=== PATIENT | male | born 1940 | race Caucasian/White ===

== ENCOUNTER 2019-04-23 13:29 | Observation (INO) ==
--- NOTE | 2019-04-23 13:57 | ERNOTE ---
Time Seen by Provider: 04/23/19 13:29 Stated Complaint: SHAKEY,CHILLS,NO FEVER Presenting Symptoms:: cough Source: patient, family Exam Limitations: no limitations Immunizations: IMMUNIZATION HX Immunizations Up to Date Yes History of Influenza Vaccine Yes Hx Pneumococcal Vaccination Yes Allergies/Adverse Reactions: Allergies shellfish derived Allergy (Severe, Verified 04/23/19 13:40) Anaphylaxis allopurinol Allergy (Intermediate, Verified 04/23/19 13:40) Vomiting exenatide [From Bydureon] Allergy (Intermediate, Verified 04/23/19 13:40) pancreatitis Home Medications: HOME MEDICATIONS Aspirin [Aspirin Enteric Coated] 81 mg PO DAILY 04/08/15 [Last Taken Unknown] Multivitamins [Multivitamin Marilou] 1 cap PO DAILY 04/08/15 [Last Taken Unknown] betamethasone valerate 0.1 % topical ointment 1 applic TP DAILY PRN 05/10/18 [Last Taken Unknown] glucagon HCl 1 mg solution for injection 1 mg SUB-Q Q20M PRN 05/10/18 [Last Taken Unknown] insulin glargine (U-100) 100 unit/mL (3 mL) subcutaneous pen 60 unit SUB-Q DAILY 05/10/18 [Last Taken Unknown] spironolactone 25 mg tablet See Rx Instructions .ROUTE .COMPLEX #90 tablet 12/02/18 [Last Taken Unknown] flash glucose scanning reader See Dose Instructions .ROUTE .MEDSUPPLY #1 ea 12/12/18 [Last Taken Unknown] flash glucose sensor kit See Dose Instructions .ROUTE .MEDSUPPLY #1 ea 12/12/18 [Last Taken Unknown] lisinopril 40 mg tablet See Rx Instructions .ROUTE .COMPLEX #90 tablet 02/10/19 [Last Taken Unknown] lovastatin 20 mg tablet See Rx Instructions .ROUTE .COMPLEX #90 tablet 02/10/19 [Last Taken Unknown] insulin lispro (U-100) 100 unit/mL subcutaneous pen 22 unit SUB-Q TID ml 02/19/19 [Last Taken Unknown] levothyroxine 175 mcg tablet See Rx Instructions .ROUTE .COMPLEX #90 tablet 02/19/19 [Last Taken Unknown] torsemide 20 mg tablet See Rx Instructions .ROUTE .COMPLEX #90 tablet 03/22/19 [Last Taken Unknown] azithromycin 250 mg tablet See Rx Instructions PO .COMPLEX #6 tab 04/22/19 [Last Taken Unknown] metronidazole 0.75 % topical cream 1 applic TP BID PRN 04/22/19 [Last Taken Unk nown] - History of Present Ilness Narrative: Patient started to not feel well two days ago,malaise, fatigue, cough and sore throat. He was seen by Dr Clancy for his regular check up yesterday, strep test was negative, he was started on zithromax, started first dose last night. He is coming to the ER as he feels worse, vomited once prior to coming here, no abdominal pain, no diarrhea, no urinary complaints, no history of lung disease Date (Duration): 04/21/19 Timing: getting worse Frequency/Possible Cause: Reports: occasional episodes. Denies: illness exposure, foreign travel Associated Symptoms: Reports: cough, sore throat, fever/chills. Denies: chest pain/soreness, shortness of breath, facial pain, dizziness Prior Treatment: Reports: recently seen, currently on antibiotics Review of Systems - Review of Systems Constitutional: Present: chills, fatigue, malaise ENT: Present: sore throat. Absent: nose congestion, nasal drainage Respiratory: Present: cough. Absent: shortness of breath Cardiology: Absent: chest pain Gastrointestinal/Abdominal: Present: vomiting. Absent: diarrhea, abdominal pain Genitourinary: Present: no symptoms reported, See HPI. Absent: frequency Musculoskeletal: Absent: back pain Skin: Absent: rash Neurological: Present: weakness. Absent: headache Medical History (Updated 04/22/19 @ 14:57 by Slava Clancy MD) Acoustic neuroma Onset Date: Unknown right Actinic keratosis Onset Date: Unknown Bursitis of left elbow Onset Date: Unknown Chronic kidney disease Onset Date: Unknown stage 1, mild Diabetes mellitus, type II Onset Date: Unknown Erectile dysfunction Onset Date: Unknown Hyperlipidemia Onset Date: Unknown Hypertension Onset Date: Unknown Hypothyroidism Onset Date: Unknown Onychomycosis Onset Date: 11/28/12 Psoriasis Onset Date: Unknown knees and elbows Rib fracture Onset Date: ~1999 thrown off horse Schwannoma Onset Date: Unknown rt ear, auditory nerve Spontaneous pneumothorax Onset Date: ~1999 thrown off horse, fractured rib Surgical History: Surgical History (Updated 06/20/18 @ 13:12 by Tiffanie Hutchins RN) H/O Achilles tendon repair Onset Date: ~1983 H/O vasectomy Onset Date: ~1964 History of bronchoscopy Onset Date: ~1968 History of cholecystectomy Onset Date: ~1962 History of hip replacement Onset Date: ~10/2014 left hip Hx of LASIK Onset Date: ~2009 Hx of appendectomy Onset Date: ~1962 Hx of sigmoidoscopy Onset Date: Unknown Toribio-04/28/08-normal colonic mucosa w/lymphoid aggregate, Bagan-01/22/09-normal Hx of tonsillectomy Onset Date: ~1945 as a child Hx of colonoscopy Onset Date: 06/10/181988, 08/2007 Bagan-large sessile villous adenoma in rectum. 10/06/08 colonic mucosa w/adenomatous changes x2, hyperplastic x1. 04/12/15 tubular adenoma x2. Recheck 3 yrs. 06/10/18 Bagan-serrated adenoma. Recheck 3 yrs. Family History: Family History (Last Reviewed 04/23/19 @ 13:41 by Juani Lemus RN) Mother , age 90-old age No problems noted. Father , age 80 Heart failure Sister Diabetes Pacemaker Son Cancer of spine Son Diabetes Alive and well Grandfather , Maternal-age 63-suicide Suicide Grandfather , Paternal-age 65 Heart disease Grandmother , Maternal-age 80 CVA (cerebral vascular accident) Grandmother , age 62 Diabetes Son Alive and well Social History: Preferred Language Dominican Do you have any hoahaoism or No cultural preference? Smoking Status Never smoker Abuse History No History of abuse Psych History No pertinent hx Alcohol Use none Drug Use none (Last Updated 02/20/19 @ 16:02 by Gaby Lopez DPM) No Social History Section defined Physical Exam - Physical Exam General Appearance: Present: wd/wn, alert, no apparent distress Head Exam: Present: normal inspection Eye Exam: Normal inspection: bilateral, PERRL: bilateral Ears, Nose, Throat: Present: normal ENT inspection, normal pharynx Neck: Present: normal inspection Respiratory: Present: no respiratory distress, normal breath sounds, no accessory muscle use, lungs clear Cardiovascular/Chest: Present: regular rate, rhythm, no murmur Gastrointestinal/Abdominal: Present: normal bowel sounds, nontender, nondistended, soft Extremity Exam: Present: no edema Neurological Exam: Present: alert, oriented, normal mood/affect, no motor/sensory deficits Skin Exam: Present: normal color, warm/dry Progress - Results and Orders Patient's Lab Results:: I have reviewed the patient's lab results. - Vital Signs Patient's Vital Signs:: I have reviewed the patient's vital signs. Vital Signs: Vital Signs 04/23/19 13:37 Temperature 38.6 C H Pulse Rate 108 H Respiratory Rate 19 Blood Pressure 116/59 O2 Sat by Pulse Oximetry 94 - X-Ray X-Ray #1 X-Ray: chest - no acute changes, no infiltrate Interpretation: Reviewed by me - Progress/Reassessment Chief Complaint: Fever Progress Note-Subjective: 04/23/19 15:10 discussed test result with patient and family will diagnose pneumonia on clinical grounds with cough, fever and hypoxemia (o2sats 89-92% on RA) 04/23/19 15:16 discussed with tramaine Rea to admit, will admit for observation, will add rocephin to zithromax as zithromax was started less than 24 hours ago PSI 110, class IV Departure Clinical Impression: Hypoxemia Pneumonia Qualifiers: Pneumonia type: due to unspecified organism Laterality: unspecified laterality Lung location: unspecified part of lung Qualified Code(s): J18.9 - Pneumonia, unspecified organism - Departure Disposition: Still a patient Condition: Stable Referrals: Slava Clancy MD [Primary Care Provider] -
[2019-04-23 14:10] LABS: Hematocrit 42.3 % (42.0-52.0); Hemoglobin 14.1 gm/dL (13.5-18.0); Mean Cell Volume 85.8 fl (78-100); Mean Corpuscular Hemoglobin 28.6 pg (27-31); Mean Corpuscular Hgb Conc 33.3 g/dl (32-36); Mean Platelet Volume 9.5 fl (8-11.3); Neutrophil # 8.3 K/mm3 (1.3-6.0); Neutrophil % 90.1 % (42-75.0); Platelet Count 124 K/mm3 (150-450); Red Blood Count 4.93 M/mm3 (4.7-6.0); Red Cell Distribution Width 13.7 % (11.5-14.0); White Blood Count 9.2 K/mm3 (4.0-10.5)
[2019-04-23 14:24] LABS: Albumin * 3.4 gm/dl (3.4-5.0); Anion Gap 16.2 mmol/L (6.8-13.8); BUN/Creatinine Ratio 20.3 (9.0-21.6); Bilirubin, Total 0.4 mg/dL (0.0-1.1); Ca. Corrected For Albumin 9.6 mg/dL (8.4-10.2); Calcium * 9.4 mg/dL (7.9-10.9); Carbon Dioxide 24.5 mmol/L (24-32.6); Potassium 4.7 mmol/L (3.4-4.6); Total Protein 7.1 gm/dL (6.2-8.2)
[2019-04-23] MEDS ORDERED: ACETAMINOPHEN 325 MG TABLET PO ONE (14:24)
[2019-04-23 14:36] LABS: Urine Bilirubin Negative (NEGATIVE); Urine Ketone Negative (NEGATIVE); Urine Nitrite Negative (NEGATIVE); Urine Protein Negative (NEGATIVE); Urine Specific Gravity 1.015 SP.GR. (1.005-1.030); Urine Urobilinogen Normal (NORMAL); Urine pH 5.5 pH (5.0-7.0)
[2019-04-23 14:43] LABS: Urine Appearance Clear (CLEAR); Urine Bacteria None Seen; Urine Blood 5 /ul (NEGATIVE); Urine Color Yellow; Urine RBC None Seen /hpf (0-5); Urine WBC None Seen /hpf (0-5)
[2019-04-23] MEDS ORDERED: ACETAMINOPHEN 325 MG TABLET PO PRN (15:28)
[2019-04-23] MEDS: NORMAL SALINE 1,000 ML IV PRN (16:25)
--- NOTE | 2019-04-23 16:55 | HP ---
Chief Complaint - Chief Complaint Date of Service: 04/23/19 Time of Service: 16:54 Chief Complaint: cough, fever History of Present Illness: Pt with PMHx of HTN, DM, hypothyroidism started having a sore throat and fever two days prior. He went to see his PCP, Dr. Clancy, yesterday in the office, and was started on azithromycin. He continued to have fevers and is feeling poorly today and presented to the ER. He developed some upper respiratory audible breathing, and feels like he has postnasal drip. He had some nausea and vomiting, and his appetite is poor. He was having increased oxygen requirements, and was febrile to 38.8. White blood cell count was not elevated. Procalcitonin was elevated at 1.17. Lactate was not elevated. He was started on Rocephin for pneumonia, given his fever and cough. Chest x-ray was negative. Medical History (Updated 04/23/19 @ 18:10 by Yesenia Sam DO) Acoustic neuroma Onset Date: Unknown right Actinic keratosis Onset Date: Unknown Bursitis of left elbow Onset Date: Unknown Chronic kidney disease Onset Date: Unknown stage 1, mild Diabetes mellitus, type II Onset Date: Unknown Erectile dysfunction Onset Date: Unknown Hyperlipidemia Onset Date: Unknown Hypertension Onset Date: Unknown Hypothyroidism Onset Date: Unknown Onychomycosis Onset Date: 11/28/12 Psoriasis Onset Date: Unknown knees and elbows Rib fracture Onset Date: ~1999 thrown off horse Schwannoma Onset Date: Unknown rt ear, auditory nerve Spontaneous pneumothorax Onset Date: ~1999 thrown off horse, fractured rib Surgical History: Surgical History (Updated 04/23/19 @ 16:55 by Yesenia Sam DO) H/O Achilles tendon repair Onset Date: ~1983 H/O vasectomy Onset Date: ~1964 History of bronchoscopy Onset Date: ~1968 History of cholecystectomy Onset Date: ~1962 History of hip replacement Onset Date: ~10/2014 left hip Hx of LASIK Onset Date: ~2009 Hx of appendectomy Onset Date: ~1962 Hx of sigmoidoscopy Onset Date: Unknown Toribio-04/28/08-normal colonic mucosa w/lymphoid aggregate, Samson-01/22/09-normal Hx of tonsillectomy Onset Date: ~1945 as a child Hx of colonoscopy Onset Date: 06/10/181988, 08/2007 Samson-large sessile villous adenoma in rectum. 10/06/08 colonic mucosa w/adenomatous changes x2, hyperplastic x1. 04/12/15 tubular adenoma x2. Recheck 3 yrs. 06/10/18 Bagan-serrated adenoma. Recheck 3 yrs. Family History: Family History (Last Reviewed 04/23/19 @ 16:27 by Fiorella Spencer RN) Mother , age 90-old age No problems noted. Father , age 80 Heart failure Sister Diabetes Pacemaker Son Cancer of spine Son Diabetes Alive and well Grandfather , Maternal-age 63-suicide Suicide Grandfather , Paternal-age 65 Heart disease Grandmother , Maternal-age 80 CVA (cerebral vascular accident) Grandmother , age 62 Diabetes Son Alive and well Social History: Patient Lives/Resources With Spouse Utilized Occupation retired Preferred Language Serbian Do you have any christian or No cultural preference? Smoking Status Never smoker Have you smoked in the past 12 No months Abuse History No History of abuse Psych History No pertinent hx Alcohol Use none Drug Use none (Last Updated 02/20/19 @ 16:02 by Gaby Lopez DPM) No Social History Section defined Review Of Systems (GEN) - Review of Systems Generalized/Overall Review: Present: Fever EENTM: Present: Throat Pain Respiratory: Present: Cough. Absent: Shortness of Breath, Wheezing Cardiac: Absent: Chest Pain, Edema Abdominal: Present: Nausea, Vomiting Genitourinary: Present: No Symptoms Reported Musculoskeletal: Present: No Symptoms Reported Neurological: Present: No Symptoms Reported Skin: Present: No Symptoms Reported Immunizations: IMMUNIZATION HX Immunizations Up to Date Yes History of Influenza Vaccine Yes Hx Pneumococcal Vaccination Yes Allergies/Adverse Reactions: Allergies Allergy/AdvReac Type Severity Reaction Status Date / Time shellfish derived Allergy Severe Anaphylaxis Verified 04/23/19 13:40 allopurinol Allergy Intermediate Vomiting Verified 04/23/19 13:40 exenatide [From Bydureon] Allergy Intermediate pancreatiti Verified 04/23/19 13:40 s Home Medications: HOME MEDICATIONS Aspirin [Aspirin Enteric Coated] 81 mg PO DAILY 04/08/15 [Last Taken Unknown] Multivitamins [Multivitamin Marilou] 1 cap PO DAILY 04/08/15 [Last Taken Unknown] betamethasone valerate 0.1 % topical ointment 1 applic TP DAILY PRN 05/10/18 [Last Taken Unknown] glucagon HCl 1 mg solution for injection 1 mg SUB-Q Q20M PRN 05/10/18 [Last Taken Unknown] insulin glargine (U-100) 100 unit/mL (3 mL) subcutaneous pen 60 unit SUB-Q HS 05/10/18 [Last Taken Unknown] flash glucose scanning reader See Dose Instructions .ROUTE .MEDSUPPLY #1 ea 12/12/18 [Last Taken Unknown] flash glucose sensor kit See Dose Instructions .ROUTE .MEDSUPPLY #1 ea 12/12/18 [Last Taken Unknown] insulin lispro (U-100) 100 unit/mL subcutaneous pen 22 unit SUB-Q TID ml 02/19/19 [Last Taken Unknown] metronidazole 0.75 % topical cream 1 applic TP BID PRN 04/22/19 [Last Taken Unknown] Azithromycin 1 tab PO DAILY 04/23/19 [Last Taken Unknown] Levothyroxine Sodium [Synthroid] 1 tab PO DAILY 04/23/19 [Last Taken Unknown] Lisinopril [Zestril] 1 tab PO DAILY 04/23/19 [Last Taken Unknown] Spironolactone [Aldactone] 1 tab PO DAILY 04/23/19 [Last Taken Unknown] Torsemide [Demadex] 1 tab PO DAILY 04/23/19 [Last Taken Unknown] lovastatin 20 mg tablet 1 tab PO HS 04/23/19 [Last Taken Unknown] Exam - Exam Vital Signs: Vital Signs - Last Taken Temp 37.8 C 04/23/19 16:12 Pulse 90 04/23/19 16:12 Resp 24 H 04/23/19 16:12 BP 110/48 04/23/19 16:12 Pulse Ox 90 L 04/23/19 16:12 Constitutional: Present: Alert, Oriented x3, Cooperative, Elderly Neck: Present: supple Respiratory: Present: rhonchi, wheezing, other - Wearing nasal cannula, at 1 L O2 Cardiovascular/Chest: Present: regular rate, rhythm, no murmur Abdomen: Present: Normal bowel sounds, soft, nontender Extremity: Absent: lower extremity edema Neurologic: Present: normal mood/affect Diagnostic Studies: Abnormal Lab Results 04/23/19 04/23/19 04/23/19 Range/Units 14:00 14:00 14:00 Plt Count 124 L (150-450) K/mm3 Neutrophils % 90.1 H (42-75.0) % Lymphocytes % 3.1 L (20-51) % Neutrophils # 8.3 H (1.3-6.0) K/mm3 Lymphocytes # 0.29 L (1.5-3.5) k/mm3 Sodium 143 H (132-142) mmol/L Plasma Sodium 145 H (130-142) mmol/L Potassium 4.7 H (3.4-4.6) mmol/L Chloride 107 H (97-106) mmol/L Anion Gap 16.2 H (6.8-13.8) mmol/L BUN 48 H (6-23) mg/dL Creatinine 2.37 H D (0.4-1.4) mg/dL Est GFR (Non-Af Amer) 28 L D (60-130) mL/min Random Glucose 248 H D (70-110) mg/dL Procalcitonin 1.17 H (0.05-0.50) ng/mL Urine Blood (NEGATIVE) /ul 04/23/19 Range/Units 14:26 Plt Count (150-450) K/mm3 Neutrophils % (42-75.0) % Lymphocytes % (20-51) % Neutrophils # (1.3-6.0) K/mm3 Lymphocytes # (1.5-3.5) k/mm3 Sodium (132-142) mmol/L Plasma Sodium (130-142) mmol/L Potassium (3.4-4.6) mmol/L Chloride (97-106) mmol/L Anion Gap (6.8-13.8) mmol/L BUN (6-23) mg/dL Creatinine (0.4-1.4) mg/dL Est GFR (Non-Af Amer) (60-130) mL/min Random Glucose (70-110) mg/dL Procalcitonin (0.05-0.50) ng/mL Urine Blood 5 H (NEGATIVE) /ul Laboratory Results WBC 9.2 K/mm3 (4.0-10.5) 04/23/19 14:00 RBC 4.93 M/mm3 (4.7-6.0) 04/23/19 14:00 Hgb 14.1 gm/dL (13.5-18.0) 04/23/19 14:00 Hct 42.3 % (42.0-52.0) 04/23/19 14:00 MCV 85.8 fl (78-100) 04/23/19 14:00 MCH 28.6 pg (27-31) 04/23/19 14:00 MCHC 33.3 g/dl (32-36) 04/23/19 14:00 RDW 13.7 % (11.5-14.0) 04/23/19 14:00 Plt Count 124 K/mm3 (150-450) L 04/23/19 14:00 MPV 9.5 fl (8-11.3) 04/23/19 14:00 Immature Gran % (Auto) 0.20 % (0.001-0.429) 04/23/19 14:00 Immature Gran # (Auto) 0.02 K/mm3 (0.000-0.0310) 04/23/19 14:00 90.1 % (42-75.0) H 04/23/19 14:00 3.1 % (20-51) L 04/23/19 14:00 5.6 % (0.0-9) 04/23/19 14:00 0.9 % (0.0-3.0) 04/23/19 14:00 0.1 % (0.0-1.0) 04/23/19 14:00 Nucleated RBC % 0.0 k/mm3 (0-1) 04/23/19 14:00 8.3 K/mm3 (1.3-6.0) H 04/23/19 14:00 0.29 k/mm3 (1.5-3.5) L 04/23/19 14:00 0.5 k/mm3 (0.0-1.0) 04/23/19 14:00 0.1 k/mm3 (0.0-0.7) 04/23/19 14:00 Absolute Basophils 0.0 k/mm3 (0.0-0.1) 04/23/19 14:00 Sodium 143 mmol/L (132-142) H 04/23/19 14:00 145 mmol/L (130-142) H 04/23/19 14:00 Potassium 4.7 mmol/L (3.4-4.6) H 04/23/19 14:00 Chloride 107 mmol/L (97-106) H 04/23/19 14:00 Carbon Dioxide 24.5 mmol/L (24-32.6) 04/23/19 14:00 16.2 mmol/L (6.8-13.8) H 04/23/19 14:00 BUN 48 mg/dL (6-23) H 04/23/19 14:00 2.37 mg/dL (0.4-1.4) H D 04/23/19 14:00 Est GFR (Non-Af Amer) 28 mL/min (60-130) L D 04/23/19 14:00 20.3 (9.0-21.6) 04/23/19 14:00 248 mg/dL (70-110) H D 04/23/19 14:00 1.9 mmol/L (0.4-2.0) 04/23/19 14:00 Calcium 9.4 mg/dL (7.9-10.9) 04/23/19 14:00 Calcium Adj for Albumin 9.6 mg/dL (8.4-10.2) 04/23/19 14:00 0.4 mg/dL (0.0-1.1) 04/23/19 14:00 AST 20 U/L (0-48) 04/23/19 14:00 ALT 29 U/L (19-67) 04/23/19 14:00 63 U/L (50-170) 04/23/19 14:00 7.1 gm/dL (6.2-8.2) 04/23/19 14:00 3.4 gm/dl (3.4-5.0) 04/23/19 14:00 1.17 ng/mL (0.05-0.50) H 04/23/19 14:00 Yellow 04/23/19 14:26 Clear (CLEAR) 04/23/19 14:26 5.5 pH (5.0-7.0) 04/23/19 14:26 Ur Specific [place] 1.015 SP.GR. (1.005-1.030) 04/23/19 14:26 Negative mg/dL (NEGATIVE) 04/23/19 14:26 Negative mg/dL (NEGATIVE) 04/23/19 14:26 Negative mg/dL (NEGATIVE) 04/23/19 14:26 5 /ul (NEGATIVE) H 04/23/19 14:26 Negative (NEGATIVE) 04/23/19 14:26 Negative mg/dl (NEGATIVE) 04/23/19 14:26 Normal EU/dl (NORMAL) 04/23/19 14:26 Ur Leukocyte Esterase Negative /ul (NEGATIVE) 04/23/19 14:26 None seen /hpf (0-5) 04/23/19 14:26 None seen /hpf (0-5) 04/23/19 14:26 Ur Epithelial Cells None seen /hpf (0-5) 04/23/19 14:26 None seen (NONE) 04/23/19 14:26 No culture indicated 04/23/19 14:26 Assessment/Plan - Assessment/Plan (1) Pneumonia Assessment: Possibly atypical as his chest x-ray is negative. We will continue the azithromycin, and Rocephin has been added. We will also give 60 mg IV Solu- Medrol. He is currently requiring oxygen, and will attempt keep his oxygen levels greater than 92%. He denies past medical history of pulmonary disease. Procalcitonin elevated 1.17, no increased white blood cell count. He has some upper respiratory congestion on exam, which is likely the source of his rhonchi. Continue PRN Tylenol for fever greater than 38 Celsius. We will administer as needed Mucinex for cough if needed. Problem: Acute Qualifiers: Pneumonia type: due to unspecified organism Laterality: unspecified laterality Lung location: unspecified part of lung Qualified Code(s): J18.9 - Pneumonia, unspecified organism (2) Diabetes mellitus type 2 in nonobese Assessment: He has a continuous glucose monitor. We will use this for his Accu-Chek readings. Continue his home 22 units NovoLog plus sliding scale insulin at meals, and 60 units of Lantus. Problem: Chronic (3) Hypertension Assessment: Hold home antihypertensives for blood pressure less than 120/80. Problem: Chronic Qualifiers: Hypertension type: essential hypertension Qualified Code(s): I10 - Essential (primary) hypertension (4) Hypothyroidism Assessment: Continue home levothyroxine. 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 His creatinine is 2.3 today, but his baseline looks to be around 1.9. He is being given fluids currently. If he is able to tolerate p.o. diet, will discontinue fluids. Problem: Chronic
[2019-04-23] MEDS ORDERED: METHYLPREDNISOLONE SOD SUCC/PF 40 MG/ML VIAL IV SCH (17:15)
[2019-04-23] MEDS ORDERED: ALBUTEROL SULFATE 2.5 MG/0.5 ML VIAL.NEB IH PRN (17:17)
[2019-04-23] MEDS ORDERED: METRONIDAZOLE APPL TP PRN (17:22)
[2019-04-23] MEDS ORDERED: METHYLPREDNISOLONE SOD SUCC/PF 40 MG/ML VIAL IV ONE (19:00)
[2019-04-23] MEDS ORDERED: SIMVASTATIN 10 MG TABLET PO SCH (21:00)
[2019-04-23] MEDS ORDERED: INSULIN GLARGINE,HUM.REC.ANLOG 100 UNITS/ML VIAL SC SCH (21:00)
[2019-04-23] MEDS ORDERED: INSULIN LISPRO 100 UNITS/ML VIAL SC ONE (21:20)
[2019-04-24] MEDS: NORMAL SALINE 1,000 ML IV PRN (00:56)
[2019-04-24] MEDS ORDERED: LEVOTHYROXINE SODIUM 175 MCG TABLET PO SCH (07:00)
[2019-04-24] MEDS: INSULIN LISPRO 100 UNITS/ML VIAL SC SCH ×2 (07:40→12:02)
[2019-04-24] MEDS ORDERED: INSULIN LISPRO 100 UNITS/ML VIAL SC SCH (09:00)
[2019-04-24] MEDS ORDERED: AZITHROMYCIN 250 MG TABLET PO SCH (09:00)
[2019-04-24] MEDS ORDERED: ASPIRIN 81 MG TABLET.DR PO SCH (09:00)
[2019-04-24] MEDS ORDERED: LISINOPRIL 40 MG TABLET PO SCH (09:00)
[2019-04-24] MEDS ORDERED: TORSEMIDE 20 MG TABLET PO SCH (09:00)
[2019-04-24] MEDS ORDERED: SPIRONOLACTONE 25 MG TABLET PO SCH (09:00)
[2019-04-24 16:40] VITALS: BP 144/73
--- NOTE | 2019-04-24 16:40 | DS ---
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 He went to see his PCP, Dr. Clancy, in the offic e, and was started on azithromycin. He continued to have fevers and is feeling poorly and presented to the ER. He developed some upper respiratory audible breathing, and feels like he has postnasal drip. He had some nausea and vomiting, and his appetite is poor. He was having increased oxygen requirements, and was febrile to 38.8. White blood cell count was not elevated. Procalcitonin was elevated at 1.17. Lactate was not elevated. He was started on Rocephin for pneumonia, given his fever and cough. He was given a dose of 60 mg solu-medrol. Chest x-ray was negative. The day after admission, he was weaned from oxygen. The upper respiratory congestion resolved, and he felt comfortable going home. He was walked in the hallway, and his oxygen remained in the upper 90's. Will DC with cefdinir, and finish the azithromycin. Procedures Performed: none Results and Findings: Pending Mircobiology Results 04/23/19 14:27 Blood Blood Culture - Preliminary NO GROWTH 24 HOURS 04/23/19 14:00 Blood Blood Culture - Preliminary NO GROWTH 24 HOURS Lab Pending Results 04/23/19 14:00: WBC 9.2, RBC 4.93, Hgb 14.1, Hct 42.3, MCV 85.8, MCH 28.6, MCHC 33.3, RDW 13.7, Plt Count 124 L, MPV 9.5, Immature Gran % (Auto) 0.20, Immature Gran # (Auto) 0.02, Neutrophils % 90.1 H, Lymphocytes % 3.1 L, Monocytes % 5.6, Eosinophils % 0.9, Basophils % 0.1, Nucleated RBC % 0.0, Neutrophils # 8.3 H, Lymphocytes # 0.29 L, Monocytes # 0.5, Eosinophils # 0.1, Absolute Basophils 0.0 04/23/19 14:00: Sodium 143 H, Plasma Sodium 145 H, Potassium 4.7 H, Chloride 107 H, Carbon Dioxide 24.5, Anion Gap 16.2 H, BUN 48 H, Creatinine 2.37 H D, Est GFR (Non-Af Amer) 28 L D, BUN/Creatinine Ratio 20.3, Random Glucose 248 H D, Calcium 9.4, Calcium Adj for Albumin 9.6, Total Bilirubin 0.4, AST 20, ALT 29, Alkaline Phosphatase 63, Total Protein 7.1, Albumin 3.4 04/23/19 14:00: Lactic Acid, Venous 1.9 04/23/19 14:00: Procalcitonin 1.17 H 04/23/19 14:26: Urine Color Yellow, Urine Appearance Clear, Urine pH 5.5, Ur Specific [place] 1.015, Urine Protein Negative, Urine Glucose (UA) Negative, Urine Ketones Negative, Urine Blood 5 H, Urine Nitrate Negative, Urine Bilirubin Negative, Urine Urobilinogen Normal, Ur Leukocyte Esterase Negative, Urine RBC None seen, Urine WBC None seen, Ur Epithelial Cells None seen, Urine Bacteria None seen, Urine Culture Comments No culture indicated Discharge Location: Home Disposition: Home self-care Condition: Good Discharge Activity: Activity as tolerated Discharge Diet: General/regular food Referrals: Slava Clancy MD [Primary Care Provider] - One Week Additional Patient Instructions (free text): -Please make TCM appointment unless senior living discharge, or if following up with outside provider. Thank you! Janae @ [facility] [phone] or Yesenia at [phone]. Prescriptions (Any new or edited meds): Cefdinir [Omnicef] 300 mg PO Q12H #10 cap Complete Home Medications List: Complete Home Medication List: Aspirin [Aspirin Enteric Coated] 81 mg PO DAILY 04/08/15 Multivitamins [Multivitamin Marilou] 1 cap PO DAILY 04/08/15 betamethasone valerate 0.1 % topical ointment 1 applic TP DAILY PRN 05/10/18 glucagon HCl 1 mg solution for injection 1 mg SUB-Q Q20M PRN 05/10/18 insulin glargine (U-100) 100 unit/mL (3 mL) subcutaneous pen 60 unit SUB-Q HS 05/10/18 flash glucose scanning reader See Dose Instructions .ROUTE .MEDSUPPLY #1 ea 12/12/18 flash glucose sensor kit See Dose Instructions .ROUTE .MEDSUPPLY #1 ea 12/12/18 insulin lispro (U-100) 100 unit/mL subcutaneous pen 22 unit SUB-Q TID ml 02/19/19 metronidazole 0.75 % topical cream 1 applic TP BID PRN 04/22/19 Azithromycin 1 tab PO DAILY 04/23/19 Levothyroxine Sodium [Synthroid] 1 tab PO DAILY 04/23/19 Lisinopril [Zestril] 1 tab PO DAILY 04/23/19 Spironolactone [Aldactone] 1 tab PO DAILY 04/23/19 Torsemide [Demadex] 1 tab PO DAILY 04/23/19 lovastatin 20 mg tablet 1 tab PO HS 04/23/19 Cefdinir [Omnicef] 300 mg PO Q12H #10 cap 04/24/19
== END 2019-04-24 17:00 | disposition home or self-care (01) ==
LOC: MS 13:29 → ER 13:29 → MS 16:17
PROVIDERS: ADMIT Family Medicine; ATTEND Family Medicine
CPT/HCPCS: 36415; 71020; 71046; 80053; 81001; 83605; 84145; 85025; 87040; 96361; 96365; 96366; 96372; 96375; 99285; G0378